=== PATIENT | female | born 2000 | race African-American/Black ===

== ENCOUNTER 2023-09-13 21:53 | Emergency (ER) | payer SELFPAY ==
[~2023-09-13] VITALS: Ht 165.1 cm; Wt 57.0 kg
[2023-09-13 22:04] VITALS: TEMP 98.8; O2SAT 99
[2023-09-13 22:37] LABS: BASOPHILS % 0.4 % (0.0-2.0); EOSINOPHILS % 0.3 % (0.0-5.0); HEMATOCRIT. 37.5 % (36.0-48.0); HEMOGLOBIN. 12.6 g/dL (12.0-16.0); LYMPHOCYTES % 25.6 % (20.0-50.0); MEAN CORPUSCULAR HEMOGLOBIN 30.3 pg (28.0-32.0); MEAN CORPUSCULAR HGB CONC 33.7 g/dL (31.0-37.0); MEAN CORPUSCULAR VOLUME 89.9 fL (81.0-99.0); MEAN PLATELET VOLUME 9.8 fl (7.4-10.4); MONOCYTES % 9.2 % (2.0-8.0); NEUTROPHILS % 64.5 % (40.0-76.0); PLATELET 181 x1000/uL (130-400); RED BLOOD CELL COUNT 4.17 mill/uL (4.2-5.4); RED CELL DISTRIBUTION WIDTH 12.8 % (11.6-14.6); WHITE BLOOD COUNT 5.5 x1000/uL (4.5-11.0)
[2023-09-13 22:42] LABS: CHLORIDE 106 mEq/L (98-107); POTASSIUM 3.7 mEq/L (3.5-5.1); SODIUM 135 mEq/L (136-145)
[2023-09-13 22:43] LABS: CALCIUM 8.9 mg/dL (8.7-10.4); CARBON DIOXIDE 23 mEq/L (21-32)
[2023-09-13 22:48] LABS: CREATININE 0.6 mg/dL (0.6-1.0); GLUCOSE 87 mg/dL (70-105); UREA NITROGEN BLOOD 10 mg/dL (9-23)
[2023-09-13 22:51] LABS: CLARITY URINE CLEAR (CLEAR); COLOR URINE YELLOW (YELLOW); GLUCOSE URINE NEGATIVE (NEGATIVE); KETONES URINE NEGATIVE (NEGATIVE); LEUKOCYTE ESTERASE URINE 3+ (NEGATIVE); NITRITE URINE NEGATIVE (NEGATIVE); OCCULT BLOOD URINE 2+ (NEGATIVE); PROTEIN URINE NEGATIVE (NEGATIVE); SPECIFIC GRAVITY URINE 1.011 (1.005-1.030)
[2023-09-13 23:04] LABS: B-HCG QUANTITATIVE 78184 mIU/mL (<3)
[2023-09-13 23:06] LABS: BACTERIA URINE TRACE; SQUAMOUS EPITHELIAL CELL URINE 1+ /lpf (RARE/1+)
[2023-09-14 00:52] VITALS: BP 115/67; PULSE 70; RESP 14
== END 2023-09-14 00:58 | disposition home or self-care (01) ==
LOC: ER 21:53
DX: O20.0 Threatened abortion (principal); Z3A.01 Less than 8 weeks gestation of pregnancy
CPT/HCPCS: 80048; 81003; 81025; 84702; 85025; 86850; 86900; 86901; 36415; 76801; 76817; 99284; Z7610 ×2